=== PATIENT | female | born 1980 | race Caucasian/White ===

== ENCOUNTER 2022-03-23 15:54 | Outpatient (CLI) | payer OTHER | END 2022-03-23 16:50 | disposition home or self-care (01) | LOC: NST 15:54 | PROVIDERS: ATTEND Obstetrics & Gynecology Maternal & Fetal Medicine | DX: Z34.90 Encounter for supervision of normal pregnancy, unspecified, unspecified trimester (principal) ==

== ENCOUNTER 2022-03-31 08:45 | Outpatient (CLI) | payer OTHER | END 2022-03-31 09:24 | disposition home or self-care (01) | LOC: NST 08:45 | PROVIDERS: ATTEND Obstetrics & Gynecology Maternal & Fetal Medicine | DX: Z34.83 Encounter for supervision of other normal pregnancy, third trimester (principal) ==

== ENCOUNTER 2022-04-10 10:04 | Outpatient (CLI) | payer OTHER | END 2022-04-10 10:47 | disposition home or self-care (01) | LOC: NST 10:04 | PROVIDERS: ATTEND Obstetrics & Gynecology | DX: Z34.83 Encounter for supervision of other normal pregnancy, third trimester (principal) ==

== ENCOUNTER 2022-04-14 08:20 | Outpatient (CLI) | payer OTHER | END 2022-04-14 09:08 | disposition home or self-care (01) | LOC: NST 08:20 | PROVIDERS: ATTEND Obstetrics & Gynecology | DX: Z34.83 Encounter for supervision of other normal pregnancy, third trimester (principal) ==

== ENCOUNTER 2022-04-17 09:41 | Inpatient (IN) | payer OTHER ==
[~2022-04-17] VITALS: Ht 180.3 cm; Wt 149.7 kg
[2022-04-17] MEDS ORDERED: LABETALOL HCL200 MG PO (11:05)
[2022-04-17] MEDS ORDERED: PRENATAL CAPLE1 EAC1 PO (11:05)
[2022-04-17] MEDS ORDERED: IRON325 MG PO (11:05)
== END 2022-04-20 12:11 | disposition home or self-care (01) | DRG 787 ==
LOC: LDR 09:41 → OB/GYN 20:09
PROVIDERS: ADMIT Obstetrics & Gynecology; ATTEND Obstetrics & Gynecology
PROC: 4A1HXCZ Monitoring of Products of Conception, Cardiac Rate, External Approach (ICD-10-PCS; 2022-04-17)
PROC: 10D00Z1 Extraction of Products of Conception, Low, Open Approach (ICD-10-PCS; principal; 2022-04-17 18:00)
DX: O36.5930 Maternal care for other known or suspected poor fetal growth, third trimester, not applicable or unspecified (principal); O14.03 Mild to moderate pre-eclampsia, third trimester; O36.8130 Decreased fetal movements, third trimester, not applicable or unspecified; Z3A.37 37 weeks gestation of pregnancy; Z37.0 Single live birth; Z20.822 Contact with and (suspected) exposure to COVID-19